=== PATIENT | female | born 1930 | race Caucasian/White ===

== ENCOUNTER 2017-02-26 12:10 | Observation (INO) | payer MEDICARE, MEDICAID ==
[2017-02-26] MEDS ORDERED: Albuterol/Ipratropium 3.0-0.5 MG/3 ML Neb Soln NEB ONE (12:33)
--- NOTE | 2017-02-26 13:09 | EDM.PDOC ---
ED HPI GENERAL MEDICAL PROBLEM - General Chief Complaint: General Stated Complaint: SOB Time Seen by Provider: 02/26/17 12:12 - History of Present Illness INITIAL COMMENTS - FREE TEXT/NARRATIVE: History of present illness: []Patient was eating prior to arrival and she suddenly felt short of breath, lightheaded and extreme weakness in her upper arms. She denied any chest pain, syncope, sweating, nausea, vomiting, numbness or tingling or sweating. She has an O2 sat monitor and she noticed that her oxygen level was 73%. Patient's normal O2 sat is in the low 90s. She does not qualify for oxygen at home. She denies any cough or recent illnesses. Review of systems: As per history of present illness and below otherwise all systems reviewed and negative. Past medical history: As per history of present illness and as reviewed below otherwise noncontributory. Surgical history: As per history of present illness and as reviewed below otherwise noncontributory. Social history: No reported history of drug or alcohol abuse. Family history: As per history of present illness and as reviewed below otherwise noncontributory. Physical exam: General: Well developed, well nourished in no respiratory distress HEENT: Atraumatic, normocephalic, pupils reactive, negative for conjunctival pallor or scleral icterus, mucous membranes moist, throat clear, neck supple, nontender, trachea midline. Lungs: Clear to auscultation, breath sounds equal bilaterally, chest nontender. No wheezing or rhonchi Heart: S1S2, regular, negative for clicks, rubs, or JVD. Abdomen: Soft, nondistended, nontender. Negative for masses or hepatosplenomegaly. Negative for costovertebral tenderness. Pelvis: Stable nontender. Genitourinary: Deferred. Rectal: Deferred. Extremities: Atraumatic, negative for cords or calf pain. Neurovascular unremarkable. Neuro: Awake, alert, oriented. Cranial nerves II through XII unremarkable. Cerebellum unremarkable. Motor and sensory unremarkable throughout. Exam nonfocal. Diagnostics: []Labs done are normal, chest x-ray is normal. While she was in NAD she had 2 more similar episodes in one episode with chest pressure which is new. While the episode was occurring nurse was in the room and took vital signs which showed a moderate hypertension otherwise normal Therapeutics: []Aspirin, DuoNeb, O2 sat were given Impression: []Lightheadedness, chest pressure Plan: []I consult Dr. Rankin on whether I should do a CTA of her head and neck given her symptoms and she knows this patient well. She stated she should just be admitted and she will consult if needed. Definitive disposition and diagnosis as appropriate pending reevaluation and review of above. 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: Musculoskeletal History: Reports: Other (See Below) Other Musculoskeletal History: spinal cord injury - Past Surgical History Musculoskeletal Surgical History: Reports: Knee Replacement Social & Family History - Family History Family Medical History: Noncontributory - Tobacco Use Smoking Status *Q: Never Smoker - Recreational Drug Use Recreational Drug Use: No ED ROS GENERAL - Review of Systems Review Of Systems: See Below (See history of present illness) ED EXAM, GENERAL - Physical Exam Exam: See Below (See history of present illness) Course - Vital Signs Last Recorded V/S: Last Vital Signs Temp 36.4 C 02/26/17 12:15 Pulse 71 02/26/17 14:29 Resp 16 02/26/17 14:29 BP 174/69 H 02/26/17 14:29 Pulse Ox 97 02/26/17 14:29 Orthostatic Blood Pressure [ 193/67 Standing] Orthostatic Blood Pressure [ 177/69 Sitting] Orthostatic Blood Pressure [ 166/78 Supine] - Orders/Labs/Meds Orders: Active Orders 24 hr Category Date Time Status Patient Status [ADT] Stat ADT 02/26/17 14:38 Active EKG 12 Lead [EKG Documentation Completion] [RC] STAT Care 02/26/17 12:51 Active RT Aerosol Therapy [RC] ASDIRECTED Care 02/26/17 12:34 Active UA W/MICROSCOPIC [URIN] Stat Lab 02/26/17 13:52 Uncollected Sodium Chloride 0.9% [Normal Saline] 250 ml Med 02/26/17 14:00 Active IV STAT Saline Lock Insert [OM.PC] Stat Oth 02/26/17 12:33 Ordered Medication Orders Sodium Chloride (Normal Saline) 250 mls @ 999 mls/hr IV STAT [facility] Labs: Laboratory Tests 02/26/17 02/26/17 02/26/17 Range/Units 12:50 12:50 12:50 WBC 5.63 (4.0-11.0) K/uL RBC 4.32 (4.30-5.90) M/uL Hgb 13.9 (12.0-16.0) g/dL Hct 42.9 (36.0-46.0) % MCV 99.3 H (80.0-98.0) fL MCH 32.2 H (27.0-32.0) pg MCHC 32.4 (31.0-37.0) g/dL RDW Std Deviation 45.6 (28.0-62.0) fl RDW Coeff of Jacqueline 13 (11.0-15.0) % Plt Count 182 (150-400) K/uL MPV 9.00 (7.40-12.00) fL Neut % (Auto) 61.2 (48.0-80.0) % Lymph % (Auto) 23.6 (16.0-40.0) % [place] % (Auto) 11.7 (0.0-15.0) % Eos % (Auto) 3.0 (0.0-7.0) % Baso % (Auto) 0.5 (0.0-1.5) % Neut # (Auto) 3.4 (1.4-5.7) K/uL Lymph # (Auto) 1.3 (0.6-2.4) K/uL [place] # (Auto) 0.7 (0.0-0.8) K/uL Eos # (Auto) 0.2 (0.0-0.7) K/uL Baso # (Auto) 0.0 (0.0-0.1) K/uL Nucleated RBC % 0.0 /100WBC Nucleated RBCs # 0 K/uL Sodium 139 (136-146) mmol/L Potassium 4.4 (3.5-5.1) mmol/L Chloride 104 (98-110) mmol/L Carbon Dioxide 27 (21-31) mmol/L BUN 14 (6.0-23.0) mg/dL Creatinine 0.9 (0.6-1.5) mg/dL Est Cr Clr Drug Dosing TNP Estimated GFR (MDRD) 59.2 ml/min Glucose 111 H (60-110) mg/dL Calcium 9.3 (8.8-10.8) mg/dL Total Bilirubin 0.4 (0.1-1.5) mg/dL AST 20 (5-40) IU/L ALT 20 (8-54) IU/L Alkaline Phosphatase 91 (40-150) Troponin I < 0.10 (0.0-0.29) NG/ML Total Protein 6.3 (6.0-8.0) g/dL Albumin 3.4 (3.4-4.8) g/dL Globulin 2.9 (2.0-3.5) g/dL Albumin/Globulin Ratio 1.2 L (1.3-2.8) Meds: Medications Generic Name Dose Route Start Last Admin Trade Name Freq PRN Reason Stop Dose Admin Sodium Chloride 250 mls @ 999 mls/hr 02/26/17 14:00 Normal Saline IV STAT LUZ Discontinued Medications Generic Name Dose Route Start Last Admin Trade Name Freq PRN Reason Stop Dose Admin Albuterol/Ipratropium 3 ml 02/26/17 12:33 02/26/17 12:56 Duoneb 3.0-0.5 Mg/3 Ml NEB 02/26/17 12:34 3 ml ONETIME ONE Administration Aspirin 324 mg 02/26/17 14:30 02/26/17 14:33 Aspirin PO 02/26/17 14:31 324 mg ONETIME ONE Administration Sodium Chloride 250 mls @ 999 mls/hr 02/26/17 14:15 02/26/17 14:17 Normal Saline IV 02/26/17 14:30 999 mls/hr .Bolus ONE Administration Departure - Departure Time of Disposition: 15:15 Disposition: Refer to Observation Condition: Good Clinical Impression: Near syncope Chest pain Qualifiers: Chest pain type: unspecified Qualified Code(s): R07.9 - Chest pain, unspecified - Discharge Information - My Orders Last 24 Hours: My Active Orders 02/26/17 12:33 Saline Lock Insert [OM.PC] Stat 02/26/17 12:34 RT Aerosol Therapy [RC] ASDIRECTED 02/26/17 12:51 EKG 12 Lead [EKG Documentation Completion] [RC] STAT 02/26/17 13:52 UA W/MICROSCOPIC [URIN] Stat 02/26/17 14:00 Sodium Chloride 0.9% [Normal Saline] 250 ml IV STAT 02/26/17 14:38 Patient Status [ADT] Stat - Assessment/Plan Last 24 Hours: My Active Orders 02/26/17 12:33 Saline Lock Insert [OM.PC] Stat 02/26/17 12:34 RT Aerosol Therapy [RC] ASDIRECTED 02/26/17 12:51 EKG 12 Lead [EKG Documentation Completion] [RC] STAT 02/26/17 13:52 UA W/MICROSCOPIC [URIN] Stat 02/26/17 14:00 Sodium Chloride 0.9% [Normal Saline] 250 ml IV STAT 02/26/17 14:38 Patient Status [ADT] Stat
[2017-02-26 13:35] LABS: CHLORIDE,CL 104 mmol/L (98-110); SODIUM,NA 139 mmol/L (136-146)
[2017-02-26] MEDS ORDERED: Sodium Chloride 0.9% 250 ML IV SCH (14:00)
[2017-02-26] MEDS ORDERED: Sodium Chloride 0.9% 250 ML IV ONE (14:15)
--- NOTE | 2017-02-26 14:19 | CR ---
EXAMINATION: Two-view chest (PA and Lateral views). HISTORY: Shortness of breath. FINDINGS: The trachea is midline. The cardiomediastinal silhouette is within normal limits. No pulmonary infil trates, effusions or pneumothorax. Mild chronic interstitial prominence. Degenerative changes noted within the thoracic spine. IMPRESSION: No acute cardiopulmonary process.
[2017-02-26] MEDS ORDERED: Aspirin 81 MG Tab.Chew PO ONE (14:30)
--- NOTE | 2017-02-26 16:04 | PCM.HP ---
H&P History of Present Illness - General Date of Service: 02/26/17 Admit Problem/Dx: Dyspnea, hypoxia, and chest pressure Source of Information: Patient, Family (Daughter, Hamida, at bedside. Assists with history) History Limitations: Reports: No Limitations - History of Present Illness Initial Comments - Free Text/Narative: This 87 year old female with history of cervical spinal stenosis with myelopathy , idiopathic axonal polyneuropathy, Walderstroms macroglobulinemia, and mild COPD presented to the ED today via EMS with complaints of SOB. She reports she was sitting at her table eating breakfast and become SOB, describes it as unable to get much air in. She then felt very lightheaded and dizzy. She denies passing out, denied any headache or blurred vision. No slurred speech or trouble speaking. She reports when EMS got there, they laid her down and placed her on oxygen and she started feeling better. She was brought to the ED and while she was in the ED she had 2 more episodes of lightheadedness and dizziness but this time it was accompanied by chest pressure. This chest pressure was midsternal, it again was relieved with lying back and oxygen. She was given ASA 324 mg. EKG SR with no ST segment changes. During my interview with her, she was feeling much better. No further episodes of SOB or lightheadedness or dizziness. In the ED labwork WNL. EKG SR, CXR negative for infiltrate, cardiomegaly, or other acute process, but did note some mild chronic interstitial prominence. BP while in ED was noted to be hypertensive, 180-190s/80-90s. It did elevate to 180s with chest pressure episode. She reports previously being on Metropolol but this was discontinued due to lightheadedness and dizziness approximately 1 year ago. She did see her PCP, Dr. Hoffman 1 month ago with SOB concerns, she at that time did not qualify for home oxygen. She previously was on home oxygen but did not need it so it was discontinued. She did mention BP issues at that time as well, but during office visit BP remained 140s SBP. She will be dyspnea, hypoxia, hypertension and chest pain R/O ACS. - Related Data Allergies/Adverse Reactions: Allergies Allergy/AdvReac Type Severity Reaction Status Date / Time No Known Allergies Allergy Verified 02/26/17 12:28 Home Medications: Home Meds Gabapentin [Neurontin] 300 mg PO QID 02/26/17 [History] Oxybutynin 5 mg PO BID 02/26/17 [History] Pramipexole [Mirapex] 2 tab PO BID 02/26/17 [History] traMADol [Ultram] 1 tab PO ASDIRECTED PRN 02/26/17 [History] Past Medical History - Past Health History Medical/Surgical History: Denies Medical/Surgical History Cardiovascular History: Reports: Hypertension. Denies: Afib, Blood Clots/VTE/ DVT, CAD, High Cholesterol, [place] Respiratory History: Reports: COPD (mild), SOB (exertional) Gastrointestinal History: Denies: GERD, GI Bleed Genitourinary History: Reports: None. 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 Denies: Diabetes, Type II, Hypothyroidism Oncologic (Cancer) History: Reports: Other (See Below) Other Oncologic History: Waldenstrom macroglobulinemia - Past Surgical History Musculoskeletal Surgical History: Reports: Knee Replacement Social & Family History - Family History Family Medical History: Noncontributory - Tobacco Use Smoking Status *Q: Former Smoker (quit 20 years ago) - Alcohol Use Alcohol Use Frequency: Weekly (2 drinks Fridays) - Recreational Drug Use Recreational Drug Use: No - Living Situation & Occupation Occupation: Retired H&P Review of Systems - Review of Systems: Review Of Systems: See Below General: Reports: No Symptoms. Denies: Fever, Chills, Malaise, Weakness HEENT: Reports: No Symptoms. Denies: Eye Pain, Headaches, Sinus Congestion, Visual Changes Pulmonary: Reports: Shortness of Breath. Denies: Wheezing, Pleuritic Chest Pain , Cough, Sputum, Hemoptysis Cardiovascular: Reports: Chest Pain, Lightheadedness, Blood Pressure Problem. Denies: Palpitations, Edema, Syncope Gastrointestinal: Reports: No Symptoms. Denies: Abdominal Pain, Black Stool, Bloody Stool, Distension, Nausea, Vomiting Genitourinary: Reports: No Symptoms. Denies: Dysuria, Frequency, Burning Musculoskeletal: Reports: Neck Pain (chronic), Back Pain (chronic) Neurological: Reports: Dizziness, Numbness (chronic neuropathies to legs). Denies: Headache Hematologic/Lymphatic: Reports: No Symptoms Immunologic: Reports: No Symptoms Exam - Exam Exam: See Below - Vital Signs Vital Signs: Last Vital Signs Temp 97.6 F 02/26/17 12:15 Pulse 71 02/26/17 14:29 Resp 16 02/26/17 14:29 BP 174/69 H 02/26/17 14:29 Pulse Ox 97 02/26/17 14:29 Weight: 93 kg - Exam Quality Assessment: Supplemental Oxygen General: Alert, Oriented, Cooperative HEENT: Conjunctiva Clear, Hearing Intact, Mucosa Moist & [place], Pupils Equal, Pupils Reactive, Glasses Neck: Supple, Trachea Midline, +2 Carotid Pulse wo Bruit, Full Range of Motion. No: Lymphadenopathy Lungs: Clear to Auscultation, Normal Respiratory Effort. No: Wheezing Cardiovascular: Regular Rate, Regular Rhythm, Normal S1, Normal S2. No: Systolic Murmur GI/Abdominal Exam: Normal Bowel Sounds, Soft, Non-Tender, No Organomegaly, No Distention, No Abnormal Bruit, No Mass, Pelvis Stable Back Exam: Full Range of Motion Extremities: Normal Inspection, Normal Range of Motion, Non-Tender, No Pedal Edema, Normal Capillary Refill Neurological: Cranial Nerves Intact, Strength Equal Bilateral, Normal Speech Neuro Extensive - Mental Status: Alert, Oriented x3, Normal Mood/Affect, Normal Cognition, Memory Intact Neuro Extensive - Motor, Sensory, Reflexes: CN II-XII Intact, Normal Reflexes. No: Normal Gait (uses can and has wide based gait) Psychiatric: Alert, Normal Affect, Normal Mood - Patient Data Result Diagrams: 02/26/17 12:50 02/26/17 12:50 EKG INTERPRETATION EKG Date: 02/26/17 Rhythm: NSR Rate (Beats/Min): 70 [place]: Normal P-Wave: Present QRS: Normal ST-T: Normal QT: Normal *Q Meaningful Use (ADM) - VTE *Q VTE Criteria *Q: - VTE Risk Assess *Q Each Risk Factor Represents 1 Point: Obesity (BMI greater than 30), Abnormal Pulmonary Function (COPD) Total Score 1 Point Risk Factors: 2 Each Risk Factor Represents 2 Points: None Total Score 2 Point Risk Factors: 0 Each Risk Factor Represents 3 Points: Age 75 Years or Greater Total Score 3 Point Risk Factors: 3 Each Risk Factor Represents 5 Points: None Total Score 5 Point Risk Factors: 0 Venous Thromboembolism Risk Factor Score *Q: 5 - Stroke *Q Stroke Criteria *Q: - AMI *Q AMI Criteria *Q: - Problem List (1) Chest pain SNOMED Code(s): 63174682 ICD Code: R07.9 - CHEST PAIN, UNSPECIFIED Status: Acute Current Visit: Yes Qualifiers: Chest pain type: unspecified Qualified Code(s): R07.9 - Chest pain, unspecified (2) Hypoxia SNOMED Code(s): 040102036, 530341430 ICD Code: R09.02 - HYPOXEMIA Status: Acute Current Visit: Yes (3) Hypertension SNOMED Code(s): 18040124 ICD Code: I10 - ESSENTIAL (PRIMARY) HYPERTENSION Status: Acute Current Visit: Yes Qualifiers: Hypertension type: essential hypertension Qualified Code(s): I10 - Essential (primary) hypertension (4) Polyneuropathy SNOMED Code(s): 68866586 ICD Code: G62.9 - POLYNEUROPATHY, UNSPECIFIED Status: Chronic Current Visit: Yes (5) Hx of Waldenstrom's macroglobulinemia SNOMED Code(s): 407604724 ICD Code: Z85.79 - PRSNL HX OF MALIG NEOPLM OF LYMPHOID, HEMATPOETC & REL TISS Status: Chronic Current Visit: Yes (6) Stenosis of cervical spine with myelopathy SNOMED Code(s): 59131839, 873217015 ICD Code: M47.12 - OTHER SPONDYLOSIS WITH MYELOPATHY, CERVICAL REGION Status: Chronic Current Visit: Yes Problem List Initiated/Reviewed/Updated: Yes Assessment/Plan Comment:: This 87 year old female admitted with chest pain, hypoxia and dyspnea 1. Chest pain: Will rule out ACS, trend troponins, monitor on telemetry. HTN may be cause of dizziness/lighteheadedness. Monitor improvement and symptoms. 2. Hypxia/dyspnea: Placed on Oxygen. Will monitor. Does not appear to be COPD exacerbation. 3. HTN: Will start Lisinopril 10 mg, monitor BP 4. Chronic pain/polyneuropathy: Continue home medications including Gabapentin and Tramadol. VTE prophylaxis: Lovenox Dispo: 1-2 days
[2017-02-26] MEDS ORDERED: Acetaminophen 325 MG Tab PO PRN (16:23)
[2017-02-26] MEDS ORDERED: Ondansetron 4 MG/2 ML SDV IVPUSH PRN (16:23)
[2017-02-26] MEDS ORDERED: Albuterol/Ipratropium 3.0-0.5 MG/3 ML Neb Soln NEB PRN (16:26)
[2017-02-26] MEDS ORDERED: traMADol 50 MG Tab PO PRN ×2 (16:26→20:34)
[2017-02-26] MEDS: Lisinopril 10 MG Tab PO SCH (17:45)
[2017-02-26] MEDS: Gabapentin 300 MG Cap PO SCH ×2 (17:46→23:57)
[2017-02-26] MEDS ORDERED: Oxybutynin 5 MG Tab PO SCH (21:00)
[2017-02-26] MEDS ORDERED: Pramipexole 0.25 MG Tab PO SCH ×2 (21:00)
[2017-02-26] MEDS: Oxybutynin 5 MG Tab PO SCH (22:04)
[2017-02-27] MEDS: Gabapentin 300 MG Cap PO SCH ×2 (06:24→11:33)
[2017-02-27] MEDS: Lisinopril 10 MG Tab PO SCH (08:28)
[2017-02-27] MEDS: Oxybutynin 5 MG Tab PO SCH (08:29)
[2017-02-27] MEDS ORDERED: Enoxaparin 40 MG/0.4 ML Syringe SUBCUT SCH (09:00)
--- NOTE | 2017-02-27 12:39 | PCM.DCSUM1 ---
Discharge Summary - Hospital Course Brief History: This 87 year old female with history of cervical spinal stenosis with myelopathy, idiopathic axonal polyneuropathy, Walderstroms macroglobulinemia, and mild COPD presented to the ED today via EMS with complaints of SOB. She reports she was sitting at her table eating breakfast and become SOB, describes it as unable to get much air in. She then felt very lightheaded and dizzy. She denies passing out, denied any headache or blurred vision. No slurred speech or trouble speaking. She reports when EMS got there, they laid her down and placed her on oxygen and she started feeling better. She was brought to the ED and while she was in the ED she had 2 more episodes of lightheadedness and dizziness but this time it was accompanied by chest pressure. This chest pressure was midsternal, it again was relieved with lying back and oxygen. She was given ASA 324 mg. EKG SR with no ST segment changes. During my interview with her, she was feeling much better. No further episodes of SOB or lightheadedness or dizziness. In the ED labwork WNL. EKG SR, CXR negative for infiltrate, cardiomegaly, or other acute process, but did note some mild chronic interstitial prominence. BP while in ED was noted to be hypertensive, 180-190s/80-90s. It did elevate to 180s with chest pressure episode. She reports previously being on Metropolol but this was discontinued due to lightheadedness and dizziness approximately 1 year ago. She did see her PCP, Dr. Hoffman 1 month ago with SOB concerns, she at that time did not qualify for home oxygen. She previously was on home oxygen but did not need it so it was discontinued. She did mention BP issues at that time as well, but during office visit BP remained 140s SBP. She was admitted for dyspnea, hypoxia, hypertension and chest pain R/O ACS. - Discharge Data Discharge Date: 02/27/17 Discharge Disposition: Home, Self-Care 01 Condition: Stable - Discharge Diagnosis/Problem(s) (1) Chest pain SNOMED Code(s): 37729125 ICD Code: R07.9 - CHEST PAIN, UNSPECIFIED Status: Acute Current Visit: Yes Qualifiers: Chest pain type: unspecified Qualified Code(s): R07.9 - Chest pain, unspecified (2) Hypoxia SNOMED Code(s): 098500757, 684175447 ICD Code: R09.02 - HYPOXEMIA Status: Acute Current Visit: Yes (3) Hypertension SNOMED Code(s): 06068780 ICD Code: I10 - ESSENTIAL (PRIMARY) HYPERTENSION Status: Acute Current Visit: Yes Qualifiers: Hypertension type: essential hypertension Qualified Code(s): I10 - Essential (primary) hypertension (4) Polyneuropathy SNOMED Code(s): 99433329 ICD Code: G62.9 - POLYNEUROPATHY, UNSPECIFIED Status: Chronic Current Visit: Yes (5) Hx of Waldenstrom's macroglobulinemia SNOMED Code(s): 136991896 ICD Code: Z85.79 - PRSNL HX OF MALIG NEOPLM OF LYMPHOID, HEMATPOETC & REL TISS Status: Chronic Current Visit: Yes (6) Stenosis of cervical spine with myelopathy SNOMED Code(s): 54976973, 670498269 ICD Code: M47.12 - OTHER SPONDYLOSIS WITH MYELOPATHY, CERVICAL REGION Status: Chronic Current Visit: Yes (7) Exertional dyspnea SNOMED Code(s): 10175570 ICD Code: R06.09 - OTHER FORMS OF DYSPNEA Status: Acute Current Visit: Yes - Patient Instructions Diet: Heart Healthy Diet Activity: As Tolerated Showering/Bathing: May Shower Notify Provider of: Fever, Increased Pain, Swelling and Redness, Drainage, Nausea and/or Vomiting - Discharge Plan Prescriptions/Med Rec: Lisinopril [Prinivil] 10 mg PO DAILY #30 tablet Home Medications: Home Meds Aspirin [Halfprin] 81 mg PO DAILY 02/26/17 [History] Gabapentin [Neurontin] 300 mg PO QID 02/26/17 [History] Magnesium 250 mg PO DAILY 02/26/17 [History] Multivitamins [Tab-A-Santiago] 1 tab PO DAILY 02/26/17 [History] Oxybutynin 5 mg PO BID 02/26/17 [History] Oxybutynin Chloride 5 mg PO BID 02/26/17 [History] Pramipexole Di-HCl [Pramipexole Dihydrochloride] 0.25 mg PO BEDTIME 02/26/17 [ History] Vitamin B Complex 1 cap PO DAILY 02/26/17 [History] Vitamin E 400 units PO DAILY 02/26/17 [History] traMADol HCl [Tramadol HCl] 50 mg PO Q6H PRN 02/26/17 [History] traMADol [Ultram] 50 mg PO Q6H PRN 02/26/17 [History] Lisinopril [Prinivil] 10 mg PO DAILY #30 tablet 02/27/17 [Rx] Forms: ED Department Discharge Referrals: Jarad Hoffman MD [Physician] - 02/28/17 9:00 am - Discharge Summary/Plan Comment DC Time >30 min.: No Discharge Summary/Plan Comment: Discharge Diagnoses Hypoxia secondary to chronic mild COPD Atypical chest pain-resolved. Polyneuropathy and myelopathy Exertional dypsnea Sonia was admitted and ACS was ruled out. Troponins negative. EKG/tele show no ST segment changes. She has no further episodes of dizziness or lightheadedness. BP was elevated on admission, Lisinopril 10 mg started BP better controlled still elevated at times of 170/80-90s. No further chest pain. She was challenged on RA today, on RA at rest oxygen saturation was 88%, with ambulation on RA 85%. She was placed on 2 L NC and remained at 95% with ambulation. I will order oxygen 2 L NC with activity at home. She has had a long standing history of exertion dyspnea and mild COPD due to long history of smoking. She currently is in a chronic stable state and is now requiring oxygen. She was in the clinic 1 month ago with similar symptoms but did not qualify at that time for home oxygen. I will send her home with oxygen today. She will follow up with Dr. Hoffman in 1 week. I will send her with Lisinopril as well for HTN. I did speak with Dr. hanks about a new resting tremor to R hand and arm. At this time she was not overly concerned due to receiving albuterol treatments, if this tremor were to continue over the next few days she would see her as an outpatient. - General Info Date of Service: 02/27/17 Admission Dx/Problem (Free Text: Dyspnea, hypoxia, and chest pressure Subjective Update: Sitting up in the chair, having some pain to legs and arms, which is her chronic pain. Denies chest pain or SOB. No episodes of light Functional Status: Reports: Pain Controlled, Tolerating Diet, Ambulating, Urinating - Review of Systems General: Reports: No Symptoms. Denies: Fever, Weakness Pulmonary: Reports: No Symptoms. Denies: Shortness of Breath Cardiovascular: Reports: No Symptoms. Denies: Chest Pain, Palpitations, Edema Gastrointestinal: Reports: No Symptoms. Denies: Abdominal Pain, Nausea, Vomiting Genitourinary: Reports: No Symptoms. Denies: Dysuria, Frequency, Burning Psychiatric: Reports: No Symptoms. Denies: Confusion - Patient Data Vitals - Most Recent: Last Vital Signs Temp 96.8 F 02/27/17 08:00 Pulse 68 02/27/17 08:00 Resp 16 02/27/17 08:00 BP 174/71 H 02/27/17 08:28 Pulse Ox 93 L 02/27/17 08:00 Weight - Most Recent: 93 kg I&O - Last 24 hours: Intake & Output 02/26/17 02/27/17 02/27/17 22:59 06:59 14:59 Intake Total 822 150 Output Total 450 350 Balance 372 -200 Lab Results - Last 24 hrs: Laboratory Results - last 24 hr 02/26/17 02/26/17 02/27/17 Range/Units 16:15 19:07 00:48 Troponin I < 0.10 < 0.10 (0.0-0.29) NG/ML Urine Color YELLOW Urine Appearance CLEAR Urine pH 6.5 (5.0-8.0) Ur Specific [place] 1.010 (1.001-1.035) Urine Protein NEGATIVE (NEGATIVE) mg/dL Urine Glucose (UA) NEGATIVE (NEGATIVE) mg/dL Urine Ketones NEGATIVE (NEGATIVE) mg/dL Urine Occult Blood NEGATIVE (NEGATIVE) Urine Nitrite NEGATIVE (NEGATIVE) Urine Bilirubin NEGATIVE (NEGATIVE) Urine Urobilinogen 0.2 (<2.0) EU/dL Ur Leukocyte Esterase NEGATIVE (NEGATIVE) Urine RBC NONE SEEN (0-2/HPF) Urine WBC 0-2 (0-5/HPF) Ur Epithelial Cells RARE (NONE-FEW) Amorphous Sediment NOT SEEN (NEGATIVE) Urine Bacteria NOT SEEN (NEGATIVE) Urine Mucus NOT SEEN (NONE-MOD) Med Orders - Current: Current Medications Acetaminophen (Tylenol) 650 mg PO Q4H PRN PRN Reason: Pain Albuterol/Ipratropium (Duoneb 3.0-0.5 Mg/3 Ml) 3 ml NEB Q4HRRT PRN PRN Reason: SOB/wheezing Enoxaparin Sodium (Lovenox) 40 mg SUBCUT DAILY [facility] Last Admin: 02/27/17 08:29 Dose: 40 mg Gabapentin (Neurontin) 300 mg PO QID [facility] Last Admin: 02/27/17 11:33 Dose: 300 mg Lisinopril (Prinivil) 10 mg PO DAILY [facility] Last Admin: 02/27/17 08:28 Dose: 10 mg Ondansetron HCl (Zofran) 4 mg IVPUSH Q4H PRN PRN Reason: Nausea Oxybutynin Chloride (Oxybutynin) 5 mg PO BID [facility] Last Admin: 02/27/17 08:29 Dose: 5 mg Pramipexole Dihydrochloride (Mirapex) 0.25 mg PO BEDTIME [facility] Last Admin: 02/26/17 22:05 Dose: 0.25 mg Tramadol HCl (Ultram) 50 mg PO Q6H PRN PRN Reason: Pain Last Admin: 02/27/17 09:49 Dose: 50 mg Discontinued Medications Albuterol/Ipratropium (Duoneb 3.0-0.5 Mg/3 Ml) 3 ml NEB ONETIME ONE Stop: 02/26/17 12:34 Last Admin: 02/26/17 12:56 Dose: 3 ml Aspirin (Aspirin) 324 mg PO ONETIME ONE Stop: 02/26/17 14:31 Last Admin: 02/26/17 14:33 Dose: 324 mg Sodium Chloride (Normal Saline) 250 mls @ 999 mls/hr IV STAT [facility] Sodium Chloride (Normal Saline) 250 mls @ 999 mls/hr IV .Bolus ONE Stop: 02/26/17 14:30 Last Admin: 02/26/17 14:17 Dose: 999 mls/hr Tramadol HCl (Ultram) 50 mg PO Q4HR PRN PRN Reason: Pain Last Admin: 02/26/17 17:49 Dose: 50 mg - Exam General: Reports: Alert, Oriented, Cooperative, No Acute Distress Neck: Reports: Supple Lungs: Reports: Clear to Auscultation, Normal Respiratory Effort Cardiovascular: Reports: Regular Rate, Regular Rhythm, No Murmurs GI/Abdominal Exam: Normal Bowel Sounds, Soft, Non-Tender, No Organomegaly, No Distention, No Abnormal Bruit, No Mass, Pelvis Stable Extremities: Normal Inspection, Normal Range of Motion Skin: Reports: Warm, Dry, Intact Neurological: Reports: No New Focal Deficit Psy/Mental Status: Reports: Alert, Normal Affect, Normal Mood *Q Meaningful Use (DIS) - VTE *Q VTE Criteria *Q: - Stroke *Q Stroke Criteria *Q: - AMI *Q AMI Criteria *Q:
[2017-02-27] MEDS ORDERED: traMADol 50 MG Tab PO ONE (12:59)
[2017-02-27 13:13] VITALS: BP 128/76
== END 2017-02-27 14:45 | disposition home or self-care (01) ==
LOC: MW.ED 12:10 → MW.ICU 14:57 → MW.MS 23:02
PROVIDERS: ADMIT Internal Medicine; ATTEND Internal Medicine
DX: R07.89 Other chest pain (principal); J44.9 Chronic obstructive pulmonary disease, unspecified; G95.9 Disease of spinal cord, unspecified; R42 Dizziness and giddiness; M48.06 Spinal stenosis, lumbar region; G62.9 Polyneuropathy, unspecified; I10 Essential (primary) hypertension; Z85.79 Personal history of other malignant neoplasms of lymphoid, hematopoietic and related tissues; M47.12 Other spondylosis with myelopathy, cervical region; Z79.82 Long term (current) use of aspirin; Z79.899 Other long term (current) drug therapy; Z96.659 Presence of unspecified artificial knee joint
CPT/HCPCS: 36415; 71020; 80053; 81001; 84484; 85025; 93005; 94664; 96360; 96372; 99285; A9270; G0378; J1650; J7040